=== PATIENT | male | born 1965 | race Caucasian/White ===

== ENCOUNTER 2019-01-12 18:47 | Emergency (ER) | payer OTHER ==
[2019-01-12] MEDS ORDERED: Ketorolac 60 MG/2 ML SDV IM ONE (19:27)
[2019-01-12] MEDS ORDERED: Benzocaine 20% Topical Spray UD MUCMEM ONE (19:28)
[2019-01-12] MEDS ORDERED: Lidocaine 2% Viscous Solution 15 ML Cup PO ONE (19:28)
--- NOTE | 2019-01-12 19:41 | EDM.PDOC ---
<Lg Miranda - Last Filed: 01/12/19 19:31> ED HPI GENERAL MEDICAL PROBLEM - General Chief Complaint: ENT Problem Stated Complaint: PT HAS MOUTH ABSCESS Time Seen by Provider: 01/12/19 19:11 - History of Present Illness INITIAL COMMENTS - FREE TEXT/NARRATIVE: HISTORY AND PHYSICAL: History of present illness: Everett is a 53-year-old male with no significant past medical history presenting to the emergency department tonight for evaluation of right tooth pain. The patient first noticed pain in his right lower canine tooth yesterday the pain has progressed to 9 out of 10 raising to 10 out of 10 when eating. The pain is localized to the right lower canine tooth and does not radiate. The patient denies systemic illness no fevers chills or night sweats. His oral solid intake has decreased however the patient did inform me that he has multiple voided multiple times today and is able to water. Review of systems: As per history of present illness and below otherwise all systems reviewed and negative. Past medical history: As per history of present illness and as reviewed below otherwise noncontributory. Surgical history: As per history of present illness and as reviewed below otherwise noncontributory. Social history: No reported history of drug or alcohol abuse. Family history: As per history of present illness and as reviewed below otherwise noncontributory. Physical exam: HEENT: Raised pustule presents to the area just inferior of the right canine tooth. The right lower canine tooth. There is that the degree of decay to the surrounding teeth. Addition there are many missing decayed and cracked teeth throughout his mouth. His head is atraumatic, normocephalic, pupils reactive, negative for conjunctival pallor or scleral icterus, mucous membranes moist, throat clear, neck supple, nontender, trachea midline. Lungs: Clear to auscultation, breath sounds equal bilaterally, chest nontender. Heart: S1S2, regular, negative for clicks, rubs, or JVD. Abdomen: Soft, nondistended, nontender. Negative for masses or hepatosplenomegaly. Negative for costovertebral tenderness. Pelvis: Deferred. Genitourinary: Deferred. Rectal: Deferred. Extremities: Atraumatic, negative for cords or calf pain. Neurovascular unremarkable. Neuro: Awake, alert, oriented. Cranial nerves II through XII unremarkable. Cerebellum unremarkable. Motor and sensory unremarkable throughout. Exam nonfocal. Diagnostics: None Therapeutics: 60 mg Toradol IM now Impression: Oral abscess Plan: At the patient is displaying no systemic fact that no further diagnostic workup is required at this time. In addition the patient's has reported his oral intake is adequate the patient does not require IV hydration at this time. The patient will be sent home with a prescription of Augmentin & Diclofenac. Dental Bolles will be distributed to the patient per nursing staff prior to discharge. Sensation states that he will follow-up with his dentist back home in [place] however he still has a strech work to complete prior to going home which will be completed in 10 days. The plan of care was reviewed with the patient he is in agreement all questions were answered. Definitive disposition and diagnosis as appropriate pending reevaluation and review of above. 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 gum Pain Score (Numeric/FACES): 10 - Related Data Allergies Allergy/AdvReac Type Severity Reaction Status Date / Time No Known Allergies Allergy Verified 01/12/19 19:08 Home Meds: Home Meds Amoxicillin/Potassium Clav [Augmentin 875-125 Tablet] 1 tab PO Q12HR #20 tablet 01/12/19 [Rx] Diclofenac Sodium [Voltaren] 75 mg PO BIDMEALS PRN #20 tab.ec 01/12/19 [Rx] metFORMIN [Glucophage XR] 1 tab PO BID 01/12/19 [History] Past Medical History Endocrine/Metabolic History: Reports: Diabetes, Type II, Obesity/BMI 30+ Social & Family History - Family History Family Medical History: Noncontributory - Tobacco Use Smoking Status *Q: Current Every Day Smoker Years of Tobacco use: 25 Packs/Tins Daily: 1 - Recreational Drug Use Recreational Drug Use: No Course - Vital Signs Last Recorded V/S: Last Vital Signs Temp 36.1 C 01/12/19 19:00 Pulse 83 01/12/19 19:00 Resp 16 01/12/19 19:00 BP 148/94 H 01/12/19 19:00 Pulse Ox 94 L 01/12/19 19:00 - Orders/Labs/Meds Meds: Medications Discontinued Medications Generic Name Dose Route Start Last Admin Trade Name Freq PRN Reason Stop Dose Admin Benzocaine 2 each 01/12/19 19:28 01/12/19 19:39 Hurricaine One 20% MUCMEM 01/12/19 19:29 2 each ONETIME ONE Administration Ketorolac Tromethamine 60 mg 01/12/19 19:27 01/12/19 19:37 Toradol IM 01/12/19 19:28 60 mg ONETIME ONE Administration Lidocaine HCl 15 ml 01/12/19 19:28 01/12/19 19:39 Xylocaine 2% Viscous PO 01/12/19 19:29 15 ml ONETIME ONE Administration Departure - Departure Disposition: Home, Self-Care 01 Clinical Impression: Dental abscess - Discharge Information Prescriptions: Amoxicillin/Potassium Clav [Augmentin 875-125 Tablet] 1 tab PO Q12HR #20 tablet Diclofenac Sodium [Voltaren] 75 mg PO BIDMEALS PRN #20 tab.ec PRN Reason: Pain Referrals: PCP,None [Primary Care Provider] - Forms: ED Department Discharge Additional Instructions: The following information is given to patients seen in the emergency department who are being discharged to home. This information is to outline your options for follow-up care. We provide all patients seen in our emergency department with a follow-up referral. The need for follow-up, as well as the timing and circumstances, are variable depending upon the specifics of your emergency department visit. If you don't have a primary care physician on staff, we will provide you with a referral. We always advise you to contact your personal physician following an emergency department visit to inform them of the circumstance of the visit and for follow-up with them and/or the need for any referrals to a consulting specialist. The emergency department will also refer you to a specialist when appropriate. This referral assures that you have the opportunity for follow-up care with a specialist. All of these measure are taken in an effort to provide you with optimal care, which includes your follow-up. Under all circumstances we always encourage you to contact your private physician who remains a resource for coordinating your care. When calling for follow-up care, please make the office aware that this follow-up is from your recent emergency room visit. If for any reason you are refused follow-up, please contact the [facility] Emergency Department at and asked to speak to the emergency department charge nurse. 1. Follow-up with your dentist as previously scheduled 2. Dental balls: Place over affected tooth and gently bite down 10 minutes every 2 hours 3. Take your antibiotic twice daily starting tonight 4. Diclofenac twice daily as needed for pain <Melva Yoder R - Last Filed: 01/12/19 19:49> ED ROS ENT - Review of Systems Review Of Systems: See Below ED EXAM, ENT - Physical Exam Exam: See Below Departure - Departure Time of Disposition: 19:48
--- NOTE | 2019-01-12 19:47 | EDM.PDOC ---
ED HPI GENERAL MEDICAL PROBLEM - General Chief Complaint: ENT Problem Stated Complaint: PT HAS MOUTH ABSCESS Time Seen by Provider: 01/12/19 19:11 - History of Present Illness INITIAL COMMENTS - FREE TEXT/NARRATIVE: HISTORY AND PHYSICAL: History of present illness: Everett is a 53-year-old male with no significant past medical history presenting to the emergency department [facility] for evaluation of right tooth pain. The patient first noticed pain in his right lower canine tooth yesterday the pain has progressed to 9 out of 10 raising to 10 out of 10 when eating. The pain is localized to the right lower canine tooth and does not radiate. The patient denies systemic illness no fevers chills or night sweats. His oral solid intake has decreased however the patient did inform me that he has multiple voided multiple times today and is able to water. Review of systems: As per history of present illness and below otherwise all systems reviewed and negative. Past medical history: As per history of present illness and as reviewed below otherwise noncontributory. Surgical history: As per history of present illness and as reviewed below otherwise noncontributory. Social history: No reported history of drug or alcohol abuse. Family history: As per history of present illness and as reviewed below otherwise noncontributory. Physical exam: HEENT: Raised pustule presents to the area just inferior of the right canine tooth. The right lower canine tooth. There is that the degree of decay to the surrounding teeth. Addition there are many missing decayed and cracked teeth throughout his mouth. His head is atraumatic, normocephalic, pupils reactive, negative for conjunctival pallor or scleral icterus, mucous membranes moist, throat clear, neck supple, nontender, trachea midline. Lungs: Clear to auscultation, breath sounds equal bilaterally, chest nontender. Heart: S1S2, regular, negative for clicks, rubs, or JVD. Abdomen: Soft, nondistended, nontender. Negative for masses or hepatosplenomegaly. Negative for costovertebral tenderness. Pelvis: Deferred. Genitourinary: Deferred. Rectal: Deferred. Extremities: Atraumatic, negative for cords or calf pain. Neurovascular unremarkable. Neuro: Awake, alert, oriented. Cranial nerves II through XII unremarkable. Cerebellum unremarkable. Motor and sensory unremarkable throughout. Exam nonfocal. Diagnostics: None Therapeutics: 60 mg Toradol IM now Impression: Oral abscess Plan: At the patient is displaying no systemic fact that no further diagnostic workup is required at this time. In addition the patient has reported his oral intake is adequate the patient does not require IV hydration at this time. The patient will be sent home with a prescription of Augmentin & Diclofenac. Dental balls will be distributed to the patient per nursing staff prior to discharge. The patient states that he will follow-up with his dentist back home in [place] however he still has a stretch of work to complete prior to going home which will be completed in 10 days. The plan of care was reviewed with the patient he is in agreement all questions were answered. Definitive disposition and diagnosis as appropriate pending reevaluation and review of above. 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 gum Pain Score (Numeric/FACES): 10 - Related Data Allergies Allergy/AdvReac Type Severity Reaction Status Date / Time No Known Allergies Allergy Verified 01/12/19 19:08 Home Meds: Home Meds Amoxicillin/Potassium Clav [Augmentin 875-125 Tablet] 1 tab PO Q12HR #20 tablet 01/12/19 [Rx] Diclofenac Sodium [Voltaren] 75 mg PO BIDMEALS PRN #20 tab.ec 01/12/19 [Rx] metFORMIN [Glucophage XR] 1 tab PO BID 01/12/19 [History] Past Medical History Endocrine/Metabolic History: Reports: Diabetes, Type II, Obesity/BMI 30+ Social & Family History - Family History Family Medical History: Noncontributory - Tobacco Use Smoking Status *Q: Current Every Day Smoker Years of Tobacco use: 25 Packs/Tins Daily: 1 - Recreational Drug Use Recreational Drug Use: No ED ROS ENT - Review of Systems Review Of Systems: ROS reveals no pertinent complaints other than HPI. ED EXAM, ENT - Physical Exam Exam: See Below Course - Vital Signs Last Recorded V/S: Last Vital Signs Temp 36.1 C 01/12/19 19:00 Pulse 83 01/12/19 19:00 Resp 16 01/12/19 19:00 BP 148/94 H 01/12/19 19:00 Pulse Ox 94 L 01/12/19 19:00 - Orders/Labs/Meds Meds: Medications Discontinued Medications Generic Name Dose Route Start Last Admin Trade Name Freq PRN Reason Stop Dose Admin Benzocaine 2 each 01/12/19 19:28 01/12/19 19:39 Hurricaine One 20% MUCMEM 01/12/19 19:29 2 each ONETIME ONE Administration Ketorolac Tromethamine 60 mg 01/12/19 19:27 01/12/19 19:37 Toradol IM 01/12/19 19:28 60 mg ONETIME ONE Administration Lidocaine HCl 15 ml 01/12/19 19:28 01/12/19 19:39 Xylocaine 2% Viscous PO 01/12/19 19:29 15 ml ONETIME ONE Administration Departure - Departure Time of Disposition: 19:45 Disposition: Home, Self-Care 01 Condition: Good Clinical Impression: Dental abscess - Discharge Information *PRESCRIPTION DRUG MONITORING PROGRAM REVIEWED*: Not Applicable *COPY OF PRESCRIPTION DRUG MONITORING REPORT IN PATIENT TRACE: Not Applicable Prescriptions: Amoxicillin/Potassium Clav [Augmentin 875-125 Tablet] 1 tab PO Q12HR #20 tablet Diclofenac Sodium [Voltaren] 75 mg PO BIDMEALS PRN #20 tab.ec PRN Reason: Pain Referrals: PCP,None [Primary Care Provider] - Forms: ED Department Discharge Additional Instructions: The following information is given to patients seen in the emergency department who are being discharged to home. This information is to outline your options for follow-up care. We provide all patients seen in our emergency department with a follow-up referral. The need for follow-up, as well as the timing and circumstances, are variable depending upon the specifics of your emergency department visit. If you don't have a primary care physician on staff, we will provide you with a referral. We always advise you to contact your personal physician following an emergency department visit to inform them of the circumstance of the visit and for follow-up with them and/or the need for any referrals to a consulting specialist. The emergency department will also refer you to a specialist when appropriate. This referral assures that you have the opportunity for follow-up care with a specialist. All of these measure are taken in an effort to provide you with optimal care, which includes your follow-up. Under all circumstances we always encourage you to contact your private physician who remains a resource for coordinating your care. When calling for follow-up care, please make the office aware that this follow-up is from your recent emergency room visit. If for any reason you are refused follow-up, please contact the [facility] Emergency Department at and asked to speak to the emergency department charge nurse. 1. Follow-up with your dentist as previously scheduled 2. Dental balls: Place over affected tooth and gently bite down 10 minutes every 2 hours 3. Take your antibiotic twice daily starting tonight 4. Diclofenac twice daily as needed for pain
== END 2019-01-12 19:57 | disposition home or self-care (01) ==
LOC: MW.ED 18:47
DX: K04.7 Periapical abscess without sinus (principal); K02.9 Dental caries, unspecified; F17.210 Nicotine dependence, cigarettes, uncomplicated
CPT/HCPCS: 96372; 99283; A9270; J1885; 99282